=== PATIENT | male | born 1950 | race Caucasian/White ===

== ENCOUNTER → 2016-10-23 | Outpatient (CLI) | payer OTHER ==
--- NOTE | 2016-10-23 11:54 | US ---
Ultrasound of the Abdomen Complete History: Thrombocytopenia. Findings: Gallbladder: Microlithiasis with a few tiny gallstones noted in the gallbladder including a fundal 7 mm gallstone. No gallbladder wall thickening or pericholecystic fluid. Common bile duct is 5 mm in di ameter which is normal. Liver: Homogeneous in echogenicity and measures 16 cm in length. In the left lobe of the liver there is a 1.9 x 1.4 x 1.4 cm simple cyst. No definite solid lesions. Renal: Right kidney measures 10 x 5 x 6 cm and left kidney 11 x 5 x 4 cm without hydronephrosis in ei ther kidney. Right renal cortical 6 mm simple cyst. Spleen: Spleen measures 12 x 12.2 x 5 cm without masses or splenomegaly. Pancreas: Homogeneous without peripancreatic fluid. Aorta: Visualized upper abdominal aorta demonstrates no aneurysm. IVC: Grossly patent. Impression: 1. Cholelithiasis without biliary ductal dilation. 2. No splenomegaly or splenic masses. 3. Hepatic left lobe 1.9 cm simple cyst. 4. No hydronephrosis.
== END ==
LOC: FIMAGING 10:16
PROVIDERS: ATTEND Internal Medicine Hematology & Oncology
DX: K80.20 Calculus of gallbladder without cholecystitis without obstruction (principal); K76.89 Other specified diseases of liver; D69.6 Thrombocytopenia, unspecified

== ENCOUNTER → 2018-01-28 | Outpatient (CLI) | payer OTHER | LOC: BMCIMAGING 09:36 | PROVIDERS: ATTEND Internal Medicine | DX: M25.531 Pain in right wrist (principal); M19.031 Primary osteoarthritis, right wrist; M19.032 Primary osteoarthritis, left wrist ==